=== PATIENT | female | born 1995 | race Caucasian/White ===

== ENCOUNTER 2018-01-19 11:23 | Emergency (ER) | payer OTHER, BC ==
[~2018-01-19] VITALS: Ht 172.7 cm; Wt 76.9 kg
[2018-01-19 11:28] VITALS: BP 124/86
== END 2018-01-19 12:04 | disposition home or self-care (01) ==
LOC: ED 11:58
DX: F41.9 Anxiety disorder, unspecified (principal); Z76.0 Encounter for issue of repeat prescription
CPT/HCPCS: 99283

== ENCOUNTER 2019-03-26 15:31 | Emergency (ER) | payer BC, OTHER ==
[~2019-03-26] VITALS: Ht 172.7 cm; Wt 81.8 kg
[2019-03-26 17:21] LABS: CULTURE INDICATED? YES; MICROSCOPIC INDICATED
--- NOTE | 2019-03-26 17:36 | NUR ---
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
--- NOTE | 2019-03-26 17:59 | NUR ---
RLQ PAIN SINCE 2 AM. FELT CONSTIPATED AND TOOK LAXITAVE AND HAD A BM. PT STATES SHE ALSO HAS HAD PAINFUL URINATION TODAY
--- NOTE | 2019-03-26 18:03 | NUR ---
plan for labs/us/ct. ermd in room for eval. call tunde. as
[2019-03-26 18:30] LABS: BASOPHILS # (AUTO) 0.02 x10^3/uL (0-0.1); BASOPHILS % (AUTO) 0 % (0-1); EOSINOPHILS # (AUTO) 0.18 x10^3/uL (0-0.4); EOSINOPHILS % (AUTO) 2 % (1-7); LYMPHOCYTES # (AUTO) 2.22 x10^3/uL (1-3.4); LYMPHOCYTES % (AUTO) 29 % (22-44); MD NO; MEAN CORPUSCULAR HEMOGLOBIN 32.2 pg (27.0-34.8); MEAN CORPUSCULAR HGB CONC 33.7 g/dL (32.4-35.8); MEAN CORPUSCULAR VOLUME 95.5 fL (80-100); MEAN PLATELET VOLUME 7.9 fL (7.4-10.4); MONOCYTES # (AUTO) 0.61 x10^3/uL (0.2-0.8); MONOCYTES % (AUTO) 8 % (2-9); NEUTROPHILS % (AUTO) 60 % (42-75); PLATELET COUNT 316 x10^3/uL (130-400); RED BLOOD COUNT 4.52 x10^6/uL (3.82-5.3); RED CELL DISTRIBUTION WIDTH 12.5 % (9.6-15.2)
[2019-03-26 18:42] LABS: ALBUMIN 3.6 g/dL (3.4-5.0); ANION GAP 5 mmol/L (5-15); CALCIUM 8.9 mg/dL (8.5-10.1); CHLORIDE 109 mmol/L (98-107)
[2019-03-26 18:48] LABS: ALANINE AMINOTRANSFERASE 26 U/L (12-78); ALKALINE PHOSPHATASE 66 U/L (45-117); BILIRUBIN,TOTAL 0.3 mg/dL (0.2-1.0); CREATININE 0.88 mg/dL (0.55-1.02); TOTAL PROTEIN 7.4 g/dL (6.4-8.2)
--- NOTE | 2019-03-26 18:48 | NUR ---
pt to us. as
--- NOTE | 2019-03-26 18:55 | NUR ---
pt back from us. results pending. vss. 05/30 pain no nausea, call griffiths in reach. as
[2019-03-26 19:52] VITALS: BP 117/70
== END 2019-03-26 19:55 | disposition home or self-care (01) ==
LOC: ED 19:45
DX: N30.00 Acute cystitis without hematuria (principal); N83.292 Other ovarian cyst, left side; N83.291 Other ovarian cyst, right side
CPT/HCPCS: 36415; 76830; 80053; 81001; 83690; 84703; 85025; 87086; 99284